=== PATIENT | male | born 1975 | race Caucasian/White ===

== ENCOUNTER 2023-03-23 10:26 | Outpatient (CLI) | payer OTHER, SELFPAY | END 2023-03-23 10:27 | disposition home or self-care (01) | PROVIDERS: PCP Family Medicine; Visit Provider Family Medicine | DX: Z00.00 Encounter for general adult medical examination without abnormal findings (principal); E78.5 Hyperlipidemia, unspecified; Z11.59 Encounter for screening for other viral diseases | CPT/HCPCS: 80053; 80061; 86803 ==

== ENCOUNTER 2023-08-24 11:32 | Outpatient (CLI) | payer OTHER, SELFPAY ==
--- NOTE | 2023-08-24 12:47 | W.ANESCHARGE ---
Anesthesia Charges Start Date/Time Anesthesia Start Date: 08/24/23 Anesthesia Start Time: 12:15 Stop Date/Time Anesthesia Stop Date: 08/24/23 Anesthesia Stop Time: 12:44
--- NOTE | 2023-08-24 13:17 | W.ANESCHARGE ---
Anesthesia Charges Start Date/Time Anesthesia Start Date: 08/24/23 Anesthesia Start Time: 12:15 Stop Date/Time Anesthesia Stop Date: 08/24/23 Anesthesia Stop Time: 12:44
== END 2023-08-24 11:33 | disposition home or self-care (01) ==
LOC: OP CLINIC 11:34
PROVIDERS: PCP Family Medicine; Visit Provider Surgery
DX: K92.1 Melena (principal); K63.5 Polyp of colon
CPT/HCPCS: 00811; 45385; J2704

== ENCOUNTER 2024-02-29 10:51 | Outpatient (CLI) | payer OTHER, SELFPAY | END 2024-02-29 10:52 | disposition home or self-care (01) | PROVIDERS: PCP Family Medicine; Visit Provider Physician Assistant Medical | DX: Z00.00 Encounter for general adult medical examination without abnormal findings (principal); E78.5 Hyperlipidemia, unspecified; Z13.29 Encounter for screening for other suspected endocrine disorder; Z13.1 Encounter for screening for diabetes mellitus | CPT/HCPCS: 80053; 80061; 84443 ==